=== PATIENT | female | born 1980 | race Caucasian/White ===

== ENCOUNTER 2018-10-12 17:59 | Emergency (ER) | payer OTHER ==
--- NOTE | 2018-10-12 18:06 | PDOC ---
Rapid Medical Evaluation Time Seen by Provider: 10/12/18 18:03 Medical Evaluation: Allergies Allergy/AdvReac Type Severity Reaction Status Date / Time diphenhydramine Allergy Verified 10/12/18 18:03 [From Benadryl] 10/12/18 18:04 I have performed a brief in-person evaluation of this patient. The patient presents with a chief complaint of: R knee/thigh pain x that started while descending steps several weeks ago, here w/ worsening pain and told by her PMD to come in to r/o DVT. Scheduled for MRI knee in near future. No obvious RF for DVT. No CP, SOB or palpitations. Pt also reports malaise w/ GONZALEZ , cough, sore throat and fever x 2 days. H/o gastric sleeve, hysterectomy, s/p fasciotomy to RLE 2/2 compartment syndrome following an injury, s/p surgery for "ruptured " ventral hernia, developed afib after surgery that has since resolved Pertinent physical exam findings: Temp 101F, HR 105, BP 161/110, +minimal swelling w/ tenderness lateral R knee I have ordered the following:US, strep/flu The patient will proceed to the ED for further evaluation. 10/12/18 18:18 Discharge Disposition - Diagnosis Leg pain Qualifiers: Laterality: right Qualified Code(s): M79.604 - Pain in right leg - Referrals - Patient Instructions - Post Discharge Activity
[2018-10-12 18:08] VITALS: BP 161/110; PULSE 105; TEMP 101; BMI 49.5
[2018-10-12] MEDS ORDERED: ACETAMINOPHEN 325 MG TABLET (FP) PO ONE (19:19)
[2018-10-12] MEDS ORDERED: ONDANSETRON *ODT* 4 MG TABLET SL ONE (19:19)
[2018-10-12] MEDS ORDERED: ACETAMINOPHEN 325 MG TABLET (FP) ONE (19:20)
[2018-10-12] MEDS ORDERED: ONDANSETRON *ODT* 4 MG TABLET ONE (19:20)
[2018-10-12 19:40] LABS: URINE APPEARANCE SLCLOUDY; URINE BILIRUBIN NEGATIVE (<2.0 mg/dL); URINE COLOR YELLOW; URINE GLUCOSE (UA) NEGATIVE (NEGATIVE); URINE KETONE TRACE (NEGATIVE); URINE LEUK ESTERASE NEGATIVE (NEGATIVE); URINE NITRITE NEGATIVE (NEGATIVE); URINE PROTEIN NEGATIVE (NEGATIVE); URINE UROBILINOGEN NEGATIVE mg/dL (0.2-1.0)
--- NOTE | 2018-10-12 19:41 | PDOC ---
History of Present Illness - General Chief Complaint: Pain Stated Complaint: KNEE PAIN/FEVER Time Seen by Provider: 10/12/18 18:03 History Source: Patient Exam Limitations: No Limitations - History of Present Illness Initial Comments: 37 yo F w a hx of morbid obesity, hysterectomy, Afib, compartment syndrome s/p fasciotomy to RLE following an injury, surgery for "ruptured " ventral hernia, gastric sleeve surgery march 07 presents to the ER with high fevers, diffuse rigors, myalgias, right knee pain, and pain all over her body saying that she feels like everything hurts and she can't control the pain. She endorses having general malaise, a headache, non-productive cough, a sore throat and a fever. She was sent to the ER to have a DVT ruled out because of the pain in her right leg. She has an MRI scheduled for her knee in the near future because this knee has been bothering her for months. A duplex US was performed for the patient which showed no signs of DVT. The patient also received a flu swab which came back positive for influenza A. Patient denies having any chest pain, palpitations, lightheadedness, blurry vision, dysuria, frequency, urgency, neck pain, diarrhea, abdominal pain or constipation. PCP: Linsey Krishnan Allergies: Diphenhydramine, cannot tolerate NSAIDs. Past surgical history: Bariatric sleeve surgery, RLE fasciotomy, Ventral hernia surgery Social history: No reported alcohol, drug, or cigarette use. Past History - Past Medical History Allergies/Adverse Reactions: Allergies Allergy/AdvReac Type Severity Reaction Status Date / Time diphenhydramine Allergy Verified 10/12/18 18:03 [From Eduardo] Home Medications: Ambulatory Orders Ondansetron HCl [Zofran] 8 mg PO DAILY #20 tablet 04/12/18 Albuterol Sulfate Inhaler - [Ventolin HFA Inhaler -] 1 - 2 inh PO Q4H #1 inhaler 10/12/18 Ondansetron [Ondansetron Odt] 8 mg PO TID #7 tab.rapdis 10/12/18 Oseltamivir Phosphate [Tamiflu -] 75 mg PO BID #10 capsule 10/12/18 Cardiac Disorders: Yes (a-fib while hospitalized) COPD: No Dementia: No HTN: Yes - Surgical History Abdominal Surgery: Yes (hernia repair) - Immunization History Immunization Up to Date: Yes - Suicide/Smoking/Psychosocial Hx Smoking History: Never smoked Information on smoking cessation initiated: Yes Hx Alcohol Use: No Drug/Substance Use Hx: No Substance Use Type: None Review of Systems - Review of Systems Able to Perform ROS?: Yes Comments:: CONSTITUTIONAL: Present: Fever, chills, fatigue EYES: Absent: visual changes ENT: Present: Sore throat Absent: ear pain CARDIOVASCULAR: Absent: chest pain, no palpitations RESPIRATORY: Present: cough, SOB GI: Present: Nausea Absent: abdominal pain, no vomiting, no constipation, no diarrhea GENITOURINARY: Absent: dysuria, no frequency, no hematuria MUSKULOSKELETAL: Present: back pain, arthralgia, myalgia SKIN: Absent: rash NEURO: Present: headache *Physical Exam - Vital Signs Last Vital Signs Temp Pulse Resp BP Pulse Ox 101.0 F H 105 H 18 161/110 H 96 10/12/18 18:04 10/12/18 18:04 10/12/18 18:04 10/12/18 18:04 10/12/18 18:04 - Physical Exam Comments: GENERAL: Well-appearing, well-nourished. No apparent distress. HEENT: Normocephalic, atraumatic. PERRL, EOM intact. CARDIOVASCULAR: Normal S1, S2. Tachycardic rate and regular rhythm. PULMONARY: Minimal evidence of respiratory distress. Lungs clear to auscultation bilaterally. No wheezing, rales or rhonchi. ABDOMEN: Soft, non-distended, non-tender. EXTREMITIES: Normal ROM in all four extremities. No gross deformities. SKIN: Warm, dry. No rash NEUROLOGICAL: No focal neurological deficits. Moderate Sedation - Procedure Monitoring Vital Signs: Procedure Monitoring Vital Signs Temperature 101.0 F H 10/12/18 18:04 Pulse Rate 105 H 10/12/18 18:04 Respiratory Rate 18 10/12/18 18:04 Blood Pressure 161/110 H 10/12/18 18:04 O2 Sat by Pulse Oximetry (%) 96 10/12/18 18:04 ED Treatment Course - LABORATORY CBC & Chemistry Diagram: 10/12/18 20:01 10/12/18 20:01 - Medications Given in the ED: ED Medications Discontinued Medications Generic Name Dose Route Start Last Admin Trade Name Freq PRN Reason Stop Dose Admin Acetaminophen 975 mg 10/12/18 19:19 10/12/18 19:23 Tylenol - PO 10/12/18 19:20 975 mg ONCE ONE Administration Ondansetron HCl 4 mg 10/12/18 19:19 10/12/18 19:23 Zofran Odt - SL 10/12/18 19:20 4 mg ONCE ONE Administration Medical Decision Making - Medical Decision Making 37 yo F w a hx of morbid obesity, hysterectomy, Afib, compartment syndrome s/p fasciotomy to RLE following an injury, surgery for "ruptured " ventral hernia, gastric sleeve surgery march 07 presents with right leg pain and flu symptoms. VS: Tachycardic, hypertensive, febrile DDx IBNLT: DVT, influenza, electrolyte disturbance, UTI/pylo, dehydration. Plan: Labs, Urine, Duplex, flu/strep swab, IV hydration, analgesia, re-assess. Duplex negative for DVT Strep negative Influenza A positive - Will treat with oseltamavir. UA shows ketones - patient feels nauseous and cannot hydrate orally so will administer 2L NS. Sent Oseltamavir, zofran, and albuterol inhaler to patient's pharmacy and discussed strict return precautions. *DC/Admit/Observation/Transfer Diagnosis at time of Disposition: Influenza A Leg pain Qualifiers: Laterality: right Qualified Code(s): M79.604 - Pain in right leg - Discharge Dispostion Disposition: HOME Condition at time of disposition: Stable Decision to Admit order: No - Prescriptions Prescriptions: Albuterol Sulfate Inhaler - [Ventolin HFA Inhaler -] 1 - 2 inh PO Q4H #1 inhaler Ondansetron [Ondansetron Odt] 8 mg PO TID #7 tab.rapdis Oseltamivir Phosphate [Tamiflu -] 75 mg PO BID #10 capsule - Referrals Referrals: Linsey Krishnan MD [Primary Care Provider] - - Patient Instructions Printed Discharge Instructions: Influenza (Alternative Therapy), Influenza Additional Instructions: You came into the ER with diffuse muscle and body aches, headaches, and a fever. We did a flu swab which came back positive and showed us that you have the flu. It is extremely important to drink plenty of fluids and take tylenol as needed for comfort. We are sending a medication for the flu to your pharmacy , please make sure to go and pick it up. We are also sending an anti nausea medication to your pharmacy. Come back to the ER if your pain worsens, you can't stop vomiting, feel extremely dehydrated, or have any other new or worsening concerns. Make sure to call your PCP in the next 24 to 48 hours and schedule a follow up to make sure you are getting better and being taken care of. Thank you for coming to the [facility] ER. We hope you feel better soon! Print Language: NIGERIEN - Post Discharge Activity
[2018-10-12] MEDS ORDERED: SODIUM CHLORIDE 0.9% 500 ML INFUS.BAG IV ONE ×2 (20:03)
[2018-10-12 20:16] LABS: BASO % 0.9 % (0-2.0); EOS % 0.3 % (0-4.5); HEMATOCRIT 41.7 % (32.4-45.2); HEMOGLOBIN 14.6 GM/dL (10.7-15.3); LYMPH % 9.4 % (8-40); MCH 30.3 pg (25.7-33.7); MCHC 35.1 g/dl (32.0-36.0); MEAN CELL VOLUME 86.4 fl (80-96); MEAN PLT VOLUME 8.5 fl (7.5-11.1); MONO % 9.9 % (3.8-10.2); NEUT % 79.5 % (42.8-82.8); PLATELET COUNT 278 K/MM3 (134-434); RBC 4.82 M/mm3 (3.60-5.2); RDW 13.9 % (11.6-15.6); WHITE BLOOD COUNT 7.4 K/mm3 (4.0-10.0)
[2018-10-12] MEDS ORDERED: OSELTAMIVIR PHOSPHATE 75 MG CAPSULE PO ONE (20:23)
[2018-10-12] MEDS ORDERED: OSELTAMIVIR PHOSPHATE 75 MG CAPSULE ONE (20:29)
[2018-10-12] MEDS ORDERED: ALBUTEROL SO4 2.5/IPRATROPIUM 0.5 INH SOL 3 ML VIAL.NEB. NEB ONE (20:59)
[2018-10-12 21:01] LABS: ALBUMIN 4.3 g/dl (3.4-5.0); ALK PHOS 92 U/L (45-117); ANION GAP 11 MMOL/L (8-16); BILIRUBIN,TOTAL 0.4 mg/dL (0.2-1); BLOOD UREA NITROGEN 13 mg/dL (7-18); CALCIUM 8.7 mg/dL (8.5-10.1); CHLORIDE 103 mmol/L (98-107); CO2 23 mmol/L (21-32); CREATININE 0.7 mg/dL (0.55-1.3); GLUCOSE,RANDOM 95 mg/dL (74-106); POTASSIUM 3.8 mmol/L (3.5-5.1); SGOT/AST 19 U/L (15-37); SGPT/ALT 34 U/L (13-61); SODIUM 138 mmol/L (136-145); TOT PROT 7.4 g/dl (6.4-8.2)
--- NOTE | 2018-10-12 21:26 | PDOC ---
Attending Attestation - Resident Resident Name: Mina Beavers - ED Attending Attestation I have performed the following: I have examined & evaluated the patient, The case was reviewed & discussed with the resident, I agree w/resident's findings & plan, Exceptions are as noted - HPI HPI: 10/12/18 21:23 37 yo F h/o gastric sleeve, obesity, afib hysterectomy here with /co fever, chills myalgia headache. cough. nonproductive. denies n/v no mod factors. no travel. no diarreha. no rash. sore throat. no other complaints. no urinary sxs. - Physicial Exam PE: 10/12/18 21:24 awake alert rhonchi bases, no crackles heart reg tachycardia. abd soft nt nd. ext wwp no edema. nuero alert orientedx 3 . skin warm and dry no rash. - Medical Decision Making 10/12/18 21:24 differential dehydration anemia, infection such as flu, electrolyte abnormality , due to h/o afib. tachycardia will obtain ekg. pt flu A positivel labs normal. feeling improved after duoneb and meds. ivf. 10/12/18 21:53 pt vitals improved. feels better. ekg sinus rhytm rate [address] t wave changes. given tamiflu, dc home. Heart Score/ECG Review #1 General ECG Interpretation: Sinus Rhythm, Normal Rate (86), Normal Intervals, No acute ischemic changes
--- NOTE | 2018-10-13 11:59 | EKG ---
Test Reason : Blood Pressure : / mmHG Vent. Rate : 086 BPM Atrial Rate : 086 BPM P-R Int : 192 ms QRS Dur : 100 ms QT Int : 390 ms P-R-T Axes : 053 047 036 degrees QTc Int : 466 ms NORMAL SINUS RHYTHM NORMAL ECG WHEN COMPARED WITH ECG OF 12-APR-2018 13:41, NO SIGNIFICANT CHANGE WAS FOUND Confirmed by JOSE LEONE MD ([id number]) on 10/13/2018 11:59:05 AM Referred By: Confirmed By:JOSE LEONE MD
== END 2018-10-12 22:07 | disposition home or self-care (01) ==
LOC: JER 17:59
PROC: 3E0337Z Introduction of Electrolytic and Water Balance Substance into Peripheral Vein, Percutaneous Approach (ICD-10-PCS; principal; 2018-10-12)
DX: J09.X2 Influenza due to identified novel influenza A virus with other respiratory manifestations (principal); M79.604 Pain in right leg; I48.91 Unspecified atrial fibrillation; E66.01 Morbid (severe) obesity due to excess calories; Z68.42 Body mass index [BMI] 45.0-49.9, adult
CPT/HCPCS: 36415; 80053; 81003; 85025; 87070; 87086; 87804; 87880; 93005; 93010; 93971-TC; 99283-25; Q0162

== ENCOUNTER 2018-11-18 06:55 | Day surgery (SDC) | payer OTHER ==
[2018-11-17 11:39] VITALS: BMI 48.4
[2018-11-18] MEDS ORDERED: BUPIVACAINE HCL/PF 2.5 MG/ML - 30 ML VIAL IJ ONE (08:20)
[2018-11-18] MEDS ORDERED: MIDAZOLAM HCL 2 MG/2 ML SINGLE DOSE VIAL ONE ×3 (08:52→09:08)
[2018-11-18] MEDS ORDERED: PROPOFOL 20 ML ONE (08:52)
[2018-11-18] MEDS ORDERED: SUCCINYLCHOLINE CHLORIDE 200 MG/10 ML VIAL ONE (08:52)
[2018-11-18] MEDS ORDERED: BUPIVACAINE HCL/PF 0.25% (2.5MG/ML) 10 ML VIAL IJ ONE (09:37)
[2018-11-18] MEDS ORDERED: ONDANSETRON 4 MG/2 ML VIAL ONE (09:52)
[2018-11-18] MEDS ORDERED: PROMETHAZINE HCL 25 MG/1 ML VIAL IVPUSH PRN (09:56)
[2018-11-18] MEDS ORDERED: oxyCODONE HCL 5 MG TABLET PO PRN ×2 (09:56)
[2018-11-18] MEDS ORDERED: ONDANSETRON 4 MG/2 ML VIAL IVPUSH PRN (09:56)
[2018-11-18] MEDS ORDERED: oxyCODONE HCL 5 MG TABLET PO ONE (10:10)
--- NOTE | 2018-11-18 10:20 | OP ---
DATE OF OPERATION: 11/18/2018 SURGEON: Sunday Cintron MD CERTIFIED WELLNESS PROGRAM MANAGER: JEAN-PAUL Neal PREOPERATIVE DIAGNOSES: 1. Right knee medial and lateral meniscal tears. 2. Right knee cartilage injury. 3. Right knee synovitis. POSTOPERATIVE DIAGNOSES: 1. Right knee medial and lateral meniscal tears. 2. Right knee cartilage injury. 3. Right knee synovitis. PROCEDURES PERFORMED: 1. Right knee arthroscopy, partial meniscectomy of medial and lateral menisci, CPT code 79523. 2. Right knee arthroscopy with chondroplasty and abrasoplasty, CPT code 35597. 3. Right knee arthroscopy with synovectomy, CPT code 20196. FINDINGS: 1. Medial meniscus anterior horn tear. 2. Lateral meniscus anterior horn to mid-body tear, central one-third. 3. Synovitis of the patellofemoral medial and lateral notch areas. 4. Grade 2 to 4 cartilage injury, 4 x 4 cm medial femoral condyle lesion with minor grade 1 to 2 changes. 5. Anterior medial lateral femoral condyle 6 x 3 cm grade 2 to 4 changes. 6. Diffuse grade 2 to 4 cartilage injury to patella and patellofemoral trochlea. 7. Anterior osteophyte of the patella. oom, where the lower extremity was prepped and draped in a sterile fashion. A tourniquet was placed on the upper thigh, but not inflated. Using standard arthroscopic technique, a lateral incision and portal was made to allow for introduction of the camera into the suprapatellar bursa. This was then taken to the medial joint line, where under direct visualization, a medial incision and portal was made. Excessive synovium noted in the medial, lateral and patellofemoral and notch area was removed by an upbiter, shaver and Bovie cautery. This was found to bring in inflammatory tissue into the joint surface, a source of pain and dysfunction. Probing of the medial and lateral meniscus found tears, as described in the findings. These were removed with the upbiter and shaver and taken back to a stable rim. Grade 2 to 3 degenerative changes were treated with a chondroplasty, removing all flaking surfaces with low-setting Bovie along the periphery to prevent further flaking. Grade 4 changes, as noted, were treated with an abrasoplasty, creating a bleeding surface at the bone/cartilage interface. Aggressive debridement with shaver/jose created bleeding surface. Micro fracture also done when indicated in findings. All areas of the knee were once again reexamined. The knee was then drained and a single suture was placed in all portals. A sterile dressing was placed and the patient was transferred to the recovery room without complication. The PA listed above was present and assisted at surgery. Their presence was absolutely medically necessary for the completion of the procedure. They helped hold the arthroscopy, pass instruments (and implants when indicated) and the procedure could not have been completed without their assistance. SUNDAY CINTRON M.D. [id number]
[2018-11-18 10:24] VITALS: TEMP 97.5
[2018-11-18] MEDS ORDERED: oxyCODONE HCL 5 MG TABLET ONE ×2 (11:13→12:48)
[2018-11-18] MEDS ORDERED: diazePAM 5 MG TABLET ONE (15:05)
[2018-11-18 16:21] VITALS: BP 129/81; PULSE 81
--- NOTE | 2018-11-22 16:43 | PATH ---
Surgical Pathology Report Patient Name: PAIGE BLACK [facility]. Rec. #: [id number] /Age/Gender: 1980 (Age: 37) / F Account: [id number] Location: [facility] Taken: 11/18/2018 Received: 11/18/2018 Reported: 11/22/2018 Physicians: Sunday Fuentes M.D. Specimen(s) Received RIGHT KNEE SHAVINGS Clinical History Derangement of right knee Final Diagnosis RIGHT KNEE SHAVINGS: FIBROSYNOVIAL TISSUE AND CARTILAGINOUS TISSUE WITH REACTIVE AND DEGENERATIVE CHANGE. Electronically Signed Donald Stanton M.D. Gross Description Received in formalin, labeled "right knee shavings," is a 4.0 x 4.0 x 0.4 cm. aggregate of koenig-yellow soft tissue fragments. A floor representative portion is submitted in one cassette. /11/21/2018 saudi11/21/2018
== END 2018-11-18 15:45 | disposition home or self-care (01) ==
LOC: FASU 06:55
PROVIDERS: ATTEND Orthopaedic Surgery
PROC: 0SBC4ZZ Excision of Right Knee Joint, Percutaneous Endoscopic Approach (ICD-10-PCS; 2018-11-18)
PROC: 0SBC4ZZ Excision of Right Knee Joint, Percutaneous Endoscopic Approach (ICD-10-PCS; 2018-11-18)
PROC: 0SBC4ZZ Excision of Right Knee Joint, Percutaneous Endoscopic Approach (ICD-10-PCS; principal; 2018-11-18 08:30)
DX: S83.241A Other tear of medial meniscus, current injury, right knee, initial encounter (principal); S83.281A Other tear of lateral meniscus, current injury, right knee, initial encounter; M65.861 Other synovitis and tenosynovitis, right lower leg; X58.XXXA Exposure to other specified factors, initial encounter; Y93.9 Activity, unspecified; Y92.9 Unspecified place or not applicable
CPT/HCPCS: 88304-TC; 93971-TC; 94760